=== PATIENT | female | born 2000 | race Caucasian/White ===

== ENCOUNTER 2019-03-13 15:05 | Emergency (ER) | payer OTHER ==
[~2019-03-13] VITALS: Ht 170.2 cm; Wt 55.3 kg
[2019-03-13] MEDS ORDERED: IV NORMAL SALINE 1000ML BAG 1,000 ML IV ONE (15:15)
[2019-03-13 16:09] LABS: BASO # 0.1 x10^3/uL (0.0-0.2); BASO % 1 % (0-3); EOS # 0.1 x10^3/uL (0.0-0.7); EOS % 1 % (0-3); HEMATOCRIT 38.3 % (36.0-47.0); HEMOGLOBIN 12.9 g/dL (12.0-15.5); LYMPH # 1.5 x10^3/uL (1.0-4.8); LYMPH % 22 % (24-48); MEAN CORPUSCULAR HEMOGLOBIN 30 pg (25-35); MEAN CORPUSCULAR HGB CONC 34 g/dL (31-37); MEAN CORPUSCULAR VOLUME 89 fL (79-100); MONO # 0.8 x10^3/uL (0.0-1.1); MONO % 11 % (0-9); NEUT # 4.7 x10^3uL (1.8-7.7); NEUT % 66 % (31-73); PLATELET COUNT 255 x10^3/uL (140-400); RED CELL DISTRIBUTION WIDTH 13.7 % (11.5-14.5); WHITE BLOOD COUNT 7.1 x10^3/uL (4.0-11.0)
--- NOTE | 2019-03-13 16:09 | PHYS DOC ---
Past Medical History Past Medical History: Anxiety Alcohol Use: None Drug Use: None Adult General Chief Complaint Chief Complaint: SYNCOPE HPI HPI Patient is a 18 year old history of anxiety and syncope who presents with near syncopal episode while driving. Patient reports feeling lightheaded dizzy with blurring of vision, eye warm and body sensation, gait with nausea. Patient was able to pull her prior to syncopal episode. Patient reports feeling nauseated and unwell this morning and was planning to drive to the emergency department ev aluated prior to syncopal episode. Denies history of glycemia, diabetes. No history of arrhythmia. Denies chest pain palpitations, vomiting. Patient does report one episodes of diarrhea earlier this week with last episode 2 days ago. No fever chills, rash, headache. No other acute symptoms or complaints. Patient does report increased stress due to workload, school, various extracurricular activities. I a period was 3 weeks ago. Patient is a nonsmoker denies drug use and drinks occasional alcohol. [] Review of Systems Review of Systems Review symptoms as per history of present illness. All other review symptoms are negative. All other systems were reviewed and found to be within normal limits, except as documented in this note. Current Medications Current Medications Current Medications Medications (Trade) Dose Ordered Sig/Hakeem Start Time Stop Time Status Last Admin Dose Admin Ondansetron HCl (Zofran) 4 mg 1X ONCE 03/13/19 17:00 03/13/19 17:01 UNV 03/13/19 16:50 4 MG Sodium Chloride 1,000 ml @ 1,000 mls/hr 1X ONCE 03/13/19 15:15 03/13/19 16:14 UNV 03/13/19 15:40 1,000 MLS/HR Physical Exam Physical Exam Constitutional: Well developed, well nourished, no acute distress, non-toxic appearance. [] HENT: Normocephalic, atraumatic, bilateral external ears normal, oropharynx moist, no oral exudates, nose normal. [] Eyes: PERRLA, EOMI, conjunctiva normal, no discharge. [] Neck: Normal range of motion, no tenderness, supple, no stridor. [] Cardiovascular:Heart rate regular rhythm, no murmur [] Lungs & Thorax: Bilateral breath sounds clear to auscultation [] Abdomen: Bowel sounds normal, soft, no tenderness. [] Skin: Warm, dry, no erythema. [] Back: No tenderness. [] Extremities: No tenderness. [] Neurologic: Alert and oriented X 3, normal motor function, normal sensory function, no focal deficits noted. [] Psychologic: Affect normal, anxious. [] Current Patient Data Vital Signs Vital Signs Date Time Temp Pulse Resp B/P (MAP) Pulse Ox O2 Delivery O2 Flow Rate FiO2 03/13/19 15:07 97.6 98 16 140/80 (100) 97 Room Air 97.6 Lab Values Laboratory Tests Test 03/13/19 15:50 03/13/19 17:00 03/13/19 17:04 White Blood Count 7.1 x10^3/uL (4.0-11.0) Red Blood Count 4.30 x10^6/uL (3.50-5.40) Hemoglobin 12.9 g/dL (12.0-15.5) Hematocrit 38.3 % (36.0-47.0) Mean Corpuscular Volume 89 fL (79-100) Mean Corpuscular Hemoglobin 30 pg (25-35) Mean Corpuscular Hemoglobin Concent 34 g/dL (31-37) Red Cell Distribution Width 13.7 % (11.5-14.5) Platelet Count 255 x10^3/uL (140-400) Neutrophils (%) (Auto) 66 % (31-73) Lymphocytes (%) (Auto) 22 % (24-48) L Monocytes (%) (Auto) 11 % (0-9) H Eosinophils (%) (Auto) 1 % (0-3) Basophils (%) (Auto) 1 % (0-3) Neutrophils # (Auto) 4.7 x10^3uL (1.8-7.7) Lymphocytes # (Auto) 1.5 x10^3/uL (1.0-4.8) Monocytes # (Auto) 0.8 x10^3/uL (0.0-1.1) Eosinophils # (Auto) 0.1 x10^3/uL (0.0-0.7) Basophils # (Auto) 0.1 x10^3/uL (0.0-0.2) Sodium Level 142 mmol/L (136-145) Potassium Level 4.0 mmol/L (3.5-5.1) Chloride Level 105 mmol/L (98-107) Carbon Dioxide Level 28 mmol/L (21-32) Anion Gap 9 (6-14) Blood Urea Nitrogen 14 mg/dL (7-20) Creatinine 0.9 mg/dL (0.6-1.0) Estimated GFR (Cockcroft-Gault) 80.7 BUN/Creatinine Ratio 16 (6-20) Glucose Level 99 mg/dL (70-99) Calcium Level 9.2 mg/dL (8.5-10.1) Total Bilirubin 0.3 mg/dL (0.2-1.0) Aspartate Amino Transferase (AST) 19 U/L (15-37) Alanine Aminotransferase (ALT) 21 U/L (14-59) Alkaline Phosphatase 78 U/L (46-116) Total Protein 8.5 g/dL (6.4-8.2) H Albumin 4.1 g/dL (3.4-5.0) Albumin/Globulin Ratio 0.9 (1.0-1.7) L Ethyl Alcohol Level < 10 mg/dL (0-10) Urine Opiates Screen Neg (NEG) Urine Methadone Screen Neg (NEG) Urine Barbiturates Neg (NEG) Urine Phencyclidine Screen Neg (NEG) Urine Amphetamine/Methamphetamine Neg (NEG) Urine Benzodiazepines Screen Neg (NEG) Urine Cocaine Screen Neg (NEG) Urine Cannabinoids Screen Neg (NEG) Urine Ethyl Alcohol Neg (NEG) POC Urine HCG, Qualitative Hcg negative (Negative) Laboratory Tests 03/13/19 15:50 Laboratory Tests 03/13/19 15:50 EKG EKG [] Radiology/Procedures Radiology/Procedures [] Course & Med Decision Making Course & Med Decision Making Pertinent Labs and Imaging studies reviewed. (See chart for details) Vital signs stable, neurologic exam, normal. Lab, EKG unremarkable. Symptoms improved. Recommend supportive care with PCP follow-up. Return cautions reviewed] Dragon Disclaimer Dragon Disclaimer This electronic medical record was generated, in whole or in part, using a voice recognition dictation system. Departure Departure Impression: Primary Impression: Syncope Additional Impression: Nausea Disposition: HOME, SELF-CARE Condition: GOOD Patient Instructions: Nausea, Adult, [id number], Syncope, [id number] Additional Instructions: Please go home and rest take nausea medication as directed. Drink clear liquids only then increase to soft bland diet as tolerated.. Follow-up with your PCP early next week for reevaluation. Return to the ED if new or worsening Scripts Ondansetron Hcl (ZOFRAN) 4 Mg Tablet 1 TAB PO Q6HRS, #10 TAB 0 Refills Prov: MITCHELL DEGROOT DO 03/13/19 Problem Qualifiers MITCHELL DEGROOT DO March 13, 2019 16:09
[2019-03-13 16:13] LABS: CALCIUM 9.2 mg/dL (8.5-10.1); CREATININE 0.9 mg/dL (0.6-1.0); GFR 80.7
[2019-03-13 16:19] LABS: ALBUMIN 4.1 g/dL (3.4-5.0); ALBUMIN/GLOBULIN RATIO 0.9 (1.0-1.7); TOTAL BILIRUBIN 0.3 mg/dL (0.2-1.0); TOTAL PROTEIN 8.5 g/dL (6.4-8.2)
[2019-03-13] MEDS ORDERED: ONDANSETRON PF 4 MG/2 ML VIAL. IV ONE (17:00)
[2019-03-13 17:22] LABS: AMPHETAMINE/METHAMPHETAMINE NEG (NEG); BARBITURATES NEG (NEG); BENZODIAZEPINES NEG (NEG); CANNABINOIDS NEG (NEG); COCAINE NEG (NEG); METHADONE NEG (NEG); OPIATES NEG (NEG); PHENCYCLIDINE NEG (NEG)
[2019-03-13 17:29] VITALS: BP 130/65
[2019-03-13] MEDS ORDERED: ONDA4TAB7 PO (17:32)
--- NOTE | 2019-03-14 14:31 | EKG ---
[facility] [address] [place] [id number] Test Date: 2019-03-13 Test Time: 15:25:04 Pat Name: NOELLE ELIZONDO Department: Room: Gender: F Film Loader: : 2000 Requested By: MITCHELL DEGROOT Order Number: [id number] Reading MD: Measurements Intervals Lawrence Rate: 92 P: 40 MA: 122 QRS: 49 QRSD: 96 T: 29 QT: 360 QTc: 450 Interpretive Statements SINUS RHYTHM INCOMPLETE RIGHT BUNDLE BRANCH BLOCK NO SPECIFIC ECG ABNORMALITIES RI6.01 No previous ECG available for comparison
== END 2019-03-13 17:55 | disposition home or self-care (01) ==
LOC: ER 15:05
DX: R55 Syncope and collapse (principal); R11.0 Nausea; H53.8 Other visual disturbances; F41.9 Anxiety disorder, unspecified
CPT/HCPCS: 36415; 80053; 80307; 81025; 85025; 93005; 96361; 96374; 99285; G0480; J2405; J7030